=== PATIENT | male | born 1945 | race Caucasian/White ===

== ENCOUNTER 2017-05-26 17:25 | Emergency (ER) | payer OTHER ==
[~2017-05-26] VITALS: Ht 167.6 cm; Wt 90.0 kg
[2017-05-26] MEDS ORDERED: ASPIRIN 81 LOW81 MG PO (18:32)
[2017-05-26] MEDS ORDERED: LIPITOR20 MG PO (18:33)
[2017-05-26] MEDS ORDERED: ULTRAM50 M1 PO (19:11)
[2017-05-26 19:39] VITALS: BP 171/79
== END 2017-05-26 19:40 | disposition home or self-care (01) | DRG 563 ==
LOC: ED 17:25
DX: S83.206A Unspecified tear of unspecified meniscus, current injury, right knee, initial encounter (principal); E78.5 Hyperlipidemia, unspecified; X50.9XXA Other and unspecified overexertion or strenuous movements or postures, initial encounter; Y93.89 Activity, other specified; Y92.008 Other place in unspecified non-institutional (private) residence as the place of occurrence of the external cause
CPT/HCPCS: L1830